=== PATIENT | female | born 1965 | race American Indian/Alaskan Native ===

== ENCOUNTER 2016-08-14 16:50 | Inpatient (IN) | payer MEDICAID ==
[~2016-08-14] VITALS: Ht 162.6 cm; Wt 121.9 kg
[2016-08-14] MEDS ORDERED: FLUO20CA19 PO (17:22)
[2016-08-14] MEDS ORDERED: ASPIRIN 81 MG TABLET CHEW PO ONE (17:30)
[2016-08-14 17:37] LABS: BLOOD UREA NITROGEN 13 mg/dL (7-18)
[2016-08-14] MEDS ORDERED: NITROGLYCERIN SINGLE TAB 0.4 MG SL ONE (17:39)
[2016-08-14] MEDS ORDERED: ASPIRIN 81 MG TABLET CHEW ONE (17:39)
[2016-08-14 17:41] LABS: ASPARTATE AMINO TRANSFERASE 37 U/L (15-37)
[2016-08-14] MEDS: NITROGLYCERIN SINGLE TAB 0.4 MG SL PRN ×3 (17:42→17:59)
[2016-08-14] MEDS ORDERED: BISACODYL 10 MG SUPP PR PRN (19:00)
[2016-08-14] MEDS ORDERED: NITROGLYCERIN 0.4 MG BOTTLE (25 TABS) SL PRN (19:00)
[2016-08-14] MEDS ORDERED: POLYETHYLENE GLYCOL 17 GM PACKET PO PRN (19:00)
[2016-08-14] MEDS ORDERED: ACETAMINOPHEN 325 MG TABLET PO PRN (19:00)
[2016-08-14] MEDS ORDERED: MORPHINE SULFATE 4 MG/ML, 1ML IVPush PRN (19:00)
[2016-08-14] MEDS ORDERED: ONDANSETRON 2MG/ML, 2ML IVP PRN (19:00)
[2016-08-14 20:17] VITALS: BP 158/52
[2016-08-14] MEDS: HEPARIN 5,000 UNITS/ML, 1ML SQ SCH (20:47)
[2016-08-14] MEDS: SODIUM CHLORIDE FLUSH 10ML SYR IVF SCH (20:47)
[2016-08-14 23:24] LABS: IS PT STATUS REG ER OR PRE ER? NO
[2016-08-15 01:53] VITALS: BP 121/74
[2016-08-15] MEDS: ASPIRIN 81 MG TABLET EC PO SCH (05:16)
[2016-08-15] MEDS: HEPARIN 5,000 UNITS/ML, 1ML SQ SCH ×3 (05:16→19:54)
[2016-08-15 05:42] LABS: IS PT STATUS REG ER OR PRE ER? NO
[2016-08-15 06:50] VITALS: BP 130/82
[2016-08-15] MEDS: SENNA/DOCUSATE TABLET PO SCH (08:24)
[2016-08-15] MEDS: SODIUM CHLORIDE FLUSH 10ML SYR IVF SCH ×2 (08:24→19:54)
[2016-08-15] MEDS ORDERED: REGADENOSON 0.4 MG/5 ML SYRINGE ONE (11:15)
[2016-08-15 13:17] VITALS: BP 139/88
[2016-08-15 19:18] VITALS: BP 146/90
[2016-08-15 20:36] VITALS: BP 114/71
[2016-08-16 01:29] VITALS: BP 126/77
[2016-08-16] MEDS: HEPARIN 5,000 UNITS/ML, 1ML SQ SCH ×3 (04:56→20:15)
[2016-08-16] MEDS: ASPIRIN 81 MG TABLET EC PO SCH (04:56)
[2016-08-16 07:38] VITALS: BP 141/89
[2016-08-16] MEDS: SENNA/DOCUSATE TABLET PO SCH (08:17)
[2016-08-16] MEDS: SODIUM CHLORIDE FLUSH 10ML SYR IVF SCH ×2 (08:17→20:15)
[2016-08-16] MEDS ORDERED: FENTANYL PF 100 MCG/2ML ONE (14:02)
[2016-08-16] MEDS ORDERED: LIDOCAINE 2%, 20ML ONE (14:03)
[2016-08-16] MEDS ORDERED: MIDAZOLAM 1 MG/ML, 5ML ONE (14:03)
[2016-08-16] MEDS ORDERED: HEPARIN 1,000 UNITS/ML, 10ML ONE (14:03)
[2016-08-16] MEDS ORDERED: VERAPAMIL 2.5 MG/ML, 2ML ONE (14:03)
[2016-08-16 15:00] VITALS: BP 134/87
[2016-08-16] MEDS ORDERED: SODIUM CHLORIDE 0.9% 1,000 ML IV SCH (15:03)
[2016-08-16] MEDS ORDERED: ACETAMINOPHEN 325 MG TABLET PO PRN (15:30)
[2016-08-16 19:46] VITALS: BP 115/77
[2016-08-17 01:08] VITALS: BP 121/75
[2016-08-17] MEDS: ASPIRIN 81 MG TABLET EC PO SCH (05:51)
[2016-08-17] MEDS: HEPARIN 5,000 UNITS/ML, 1ML SQ SCH (05:52)
[2016-08-17 06:57] VITALS: BP 128/74
[2016-08-17] MEDS: SODIUM CHLORIDE FLUSH 10ML SYR IVF SCH (08:11)
[2016-08-17] MEDS: SENNA/DOCUSATE TABLET PO SCH (08:11)
== END 2016-08-17 11:15 | disposition home or self-care (01) | DRG 287 ==
LOC: ED 18:30 → EDIP 18:35 → ED 19:07 → 5SO 20:04 → DCLOUNGE 08-17 11:04
PROVIDERS: ADMIT Family Medicine
PROC: 4A023N7 Measurement of Cardiac Sampling and Pressure, Left Heart, Percutaneous Approach (ICD-10-PCS; principal; 2016-08-16)
PROC: B2111ZZ Fluoroscopy of Multiple Coronary Arteries using Low Osmolar Contrast (ICD-10-PCS; 2016-08-16)
PROC: B2151ZZ Fluoroscopy of Left Heart using Low Osmolar Contrast (ICD-10-PCS; 2016-08-16)
DX: R07.89 Other chest pain (principal); Z68.42 Body mass index [BMI] 45.0-49.9, adult; E66.01 Morbid (severe) obesity due to excess calories; F41.9 Anxiety disorder, unspecified; F32.9 Major depressive disorder, single episode, unspecified; E78.2 Mixed hyperlipidemia; I10 Essential (primary) hypertension; Z87.891 Personal history of nicotine dependence; Z90.49 Acquired absence of other specified parts of digestive tract; Z82.61 Family history of arthritis; Z82.49 Family history of ischemic heart disease and other diseases of the circulatory system
CPT/HCPCS: 36415; 71010; 78452; 80053; 80061; 84439; 84443; 84484; 85025; 85379; 93005; 93017; 93306; 93458; C1894; J1644; J2250; J2785; J3010; J3490; A9502; C9898; Q9967

== ENCOUNTER 2017-06-21 12:00 | Emergency (ER) | payer MEDICAID ==
[~2017-06-21] VITALS: Ht 162.6 cm; Wt 125.5 kg
[~2017-06-21 12:00] MED LIST: FLUO20CA19 PO
[2017-06-21 12:05] VITALS: BP 142/83
[2017-06-21] MEDS ORDERED: LIDOCAINE 2%, 20ML SQ ONE (12:30)
[2017-06-21] MEDS ORDERED: LIDOCAINE-MPF 2% ,5ML ONE (12:39)
== END 2017-06-21 13:33 | disposition home or self-care (01) ==
LOC: ED 12:27
DX: L02.414 Cutaneous abscess of left upper limb (principal); E11.9 Type 2 diabetes mellitus without complications; R07.9 Chest pain, unspecified
CPT/HCPCS: 10060; 99283